=== PATIENT | male | born 1975 | race African-American/Black ===

== ENCOUNTER 2018-11-22 11:27 | Emergency (ER) | payer OTHER ==
[~2018-11-22] VITALS: Ht 188 cm; Wt 87.0 kg
[2018-11-22 11:58] VITALS: BP 112/81
== END 2018-11-22 14:50 | disposition home or self-care (01) ==
LOC: ER 11:27
DX: S60.932A Unspecified superficial injury of left thumb, initial encounter (principal); X58.XXXA Exposure to other specified factors, initial encounter; Y93.9 Activity, unspecified; Y92.9 Unspecified place or not applicable; Z88.0 Allergy status to penicillin; Z98.890 Other specified postprocedural states
CPT/HCPCS: 99281

== ENCOUNTER 2020-03-12 23:38 | Emergency (ER) | payer OTHER ==
[~2020-03-12] VITALS: Ht 182.9 cm; Wt 90.0 kg
[2020-03-13 02:20] LABS: BASOPHILS % 0.9 % (0.0-2.0); EOSINOPHILS % 7.5 % (0.0-5.0); HEMATOCRIT. 43.3 % (42.0-52.0); HEMOGLOBIN. 14.7 g/dL (14.0-18.0); LYMPHOCYTES % 25.1 % (20.0-50.0); MEAN CORPUSCULAR HEMOGLOBIN 33.2 pg (28.0-32.0); MEAN CORPUSCULAR VOLUME 98.2 fL (80.0-94.0); MEAN PLATELET VOLUME 8.9 fl (7.4-10.4); MONOCYTES % 8.8 % (2.0-8.0); NEUTROPHILS % 57.7 % (40.0-76.0); PLATELET 185 x1000/uL (130-400); RED BLOOD CELL COUNT 4.41 mill/uL (4.7-6.1); RED CELL DISTRIBUTION WIDTH 12.6 % (11.6-14.6)
[2020-03-13 02:24] LABS: CHLORIDE 106 mEq/L (98-107)
[2020-03-13 02:28] LABS: ETHANOL BLOOD < 10 mg/dL
[2020-03-13 02:50] LABS: CLARITY URINE CLEAR (CLEAR); COLOR URINE YELLOW (YELLOW); KETONES URINE NEGATIVE (NEGATIVE); LEUKOCYTE ESTERASE URINE NEGATIVE (NEGATIVE); NITRITE URINE NEGATIVE (NEGATIVE); OCCULT BLOOD URINE NEGATIVE (NEGATIVE); PH URINE 6.5 (4.5-8.0); PROTEIN URINE NEGATIVE (NEGATIVE)
[2020-03-13 03:00] LABS: *AMPHETAMINES SCREEN URINE NEGATIVE (NEGATIVE); *BARBITURATES SCREEN URINE NEGATIVE (NEGATIVE); *BENZODIAZEPINES SCREEN URINE NEGATIVE (NEGATIVE); *COCAINE SCREEN URINE NEGATIVE (NEGATIVE); METHADONE URINE SCREEN NEGATIVE (NEGATIVE); OPIATES URINE SCREEN NEGATIVE (NEGATIVE)
[2020-03-13 03:01] LABS: CANNABINOID URINE SCREEN NEGATIVE (NEGATIVE); PHENCYCLIDINE URINE SCREEN NEGATIVE (NEGATIVE)
[2020-03-13 04:00] VITALS: BP 118/76
== END 2020-03-13 04:20 | disposition home or self-care (01) ==
LOC: ER 23:38
DX: F41.9 Anxiety disorder, unspecified (principal); I49.9 Cardiac arrhythmia, unspecified; Z98.890 Other specified postprocedural states; Z88.0 Allergy status to penicillin
CPT/HCPCS: 36415; 80053; 80305; 80320; 81003; 84443; 85025; 93005; 99284; G0480

== ENCOUNTER 2021-09-20 09:04 | Emergency (ER) | payer MEDICAID, OTHER ==
[~2021-09-20] VITALS: Ht 185.4 cm; Wt 99.0 kg
[~2021-09-20 09:04] MED LIST: IBUP-2029 MT
[2021-09-20] MEDS ORDERED: BO1 TP (10:19)
[2021-09-20 10:36] VITALS: BP 118/76
== END 2021-09-20 10:36 | disposition home or self-care (01) ==
LOC: ER 09:35
DX: L98.498 Non-pressure chronic ulcer of skin of other sites with other specified severity (principal); K12.2 Cellulitis and abscess of mouth; Z88.0 Allergy status to penicillin
CPT/HCPCS: 99282

== ENCOUNTER 2021-10-11 08:45 | Emergency (ER) | payer OTHER ==
[~2021-10-11] VITALS: Ht 182.9 cm; Wt 96.0 kg
[~2021-10-11 08:45] MED LIST changes: +BO1 TP
[2021-10-11] MEDS ORDERED: KETOROLAC 30MG/ML VIAL IV STA (10:37)
[2021-10-11] MEDS ORDERED: SODIUM CHLORIDE 0.9% 1,000 ML IV ONE (10:45)
[2021-10-11 10:46] LABS: HEMOGLOBIN. 16.6 g/dL (14.0-18.0); MEAN CORPUSCULAR HEMOGLOBIN 34.1 pg (28.0-32.0); MEAN CORPUSCULAR VOLUME 98.9 fL (80.0-94.0); MEAN PLATELET VOLUME 8.9 fl (7.4-10.4); PLATELET 185 x1000/uL (130-400); RED BLOOD CELL COUNT 4.86 mill/uL (4.7-6.1); RED CELL DISTRIBUTION WIDTH 13.1 % (11.6-14.6)
[2021-10-11 10:49] LABS: CLARITY URINE CLEAR (CLEAR); COLOR URINE YELLOW (YELLOW); KETONES URINE TRACE (NEGATIVE); LEUKOCYTE ESTERASE URINE NEGATIVE (NEGATIVE); NITRITE URINE NEGATIVE (NEGATIVE); OCCULT BLOOD URINE NEGATIVE (NEGATIVE); PH URINE 5.5 (4.5-8.0); PROTEIN URINE NEGATIVE (NEGATIVE); SPECIFIC GRAVITY URINE 1.023 (1.005-1.030); UROBILINOGEN URINE 0.2 E.U./dL (0.2-1.0)
[2021-10-11 10:53] LABS: CHLORIDE 105 mEq/L (98-107)
[2021-10-11 11:07] LABS: PLATELET ESTIMATE NORMAL
[2021-10-11] MEDS ORDERED: METRONIDAZOLE 500 MG PREMIX 100 ML IV ONE (12:00)
[2021-10-11] MEDS ORDERED: LEVOFLOXACIN 500MG PREMIX 100 ML IV ONE (12:00)
[2021-10-11] MEDS ORDERED: SODIUM CHLORIDE 0.9% 1000ML BAG (SEPSIS BOLUS) IV ONE (12:00)
[2021-10-11 15:50] VITALS: BP 116/67
== END 2021-10-11 18:18 | disposition short-term general hospital (02) ==
LOC: ER 09:56
DX: A41.9 Sepsis, unspecified organism (principal); R10.13 Epigastric pain; R19.7 Diarrhea, unspecified; Z20.822 Contact with and (suspected) exposure to COVID-19; Z88.0 Allergy status to penicillin
CPT/HCPCS: 36415; 74176; 80053; 81003; 82962; 83605; 83690; 85025; 87040; 87086; 87426; 93005; 96361; 96365; 96368; 99285; C9803; J1956; J3490; J7030; J1885

== ENCOUNTER 2022-01-17 10:57 | Emergency (ER) | payer OTHER ==
[~2022-01-17] VITALS: Ht 180.3 cm; Wt 94.0 kg
[2022-01-17 11:04] VITALS: BP 123/80
[2022-01-17] MEDS ORDERED: LIDOCAINE HCL/PF 1% 10 MG/ML 5ML VIAL INFIL ONE (12:45)
[2022-01-17] MEDS ORDERED: BACITRACIN ZINC OINT UDPKT TOP ONE (12:45)
[2022-01-17] MEDS ORDERED: ACETAMINOPHEN 325MG TABLET PO ONE (12:45)
[2022-01-17] MEDS ORDERED: CLIN-194 MT (15:15)
== END 2022-01-17 15:37 | disposition home or self-care (01) ==
LOC: ER 10:57
DX: L03.011 Cellulitis of right finger (principal); R55 Syncope and collapse; R94.31 Abnormal electrocardiogram [ECG] [EKG]; R42 Dizziness and giddiness; Z88.0 Allergy status to penicillin; W01.0XXA Fall on same level from slipping, tripping and stumbling without subsequent striking against object, initial encounter; Y93.89 Activity, other specified; Y92.230 Patient room in hospital as the place of occurrence of the external cause
CPT/HCPCS: 70450; 93005; 99284; J3490

== ENCOUNTER 2022-01-19 21:38 | Emergency (ER) | payer OTHER ==
[~2022-01-19] VITALS: Ht 180.3 cm; Wt 96.1 kg
[~2022-01-19 21:38] MED LIST changes: +CLIN-194 MT
[2022-01-19 21:45] VITALS: BP 143/90
[2022-01-20] MEDS ORDERED: ONDANSETRON 4MG ODT PO STA (00:20)
[2022-01-20] MEDS ORDERED: ACETAMINOPHEN 325MG TABLET PO STA (00:20)
[2022-01-20 00:41] LABS: CLARITY URINE CLEAR (CLEAR); COLOR URINE YELLOW (YELLOW); KETONES URINE NEGATIVE (NEGATIVE); LEUKOCYTE ESTERASE URINE NEGATIVE (NEGATIVE); NITRITE URINE NEGATIVE (NEGATIVE); OCCULT BLOOD URINE NEGATIVE (NEGATIVE); PH URINE 5.5 (4.5-8.0); PROTEIN URINE NEGATIVE (NEGATIVE); SPECIFIC GRAVITY URINE 1.006 (1.005-1.030); UROBILINOGEN URINE 0.2 E.U./dL (0.2-1.0)
[2022-01-20 00:55] LABS: *AMPHETAMINES SCREEN URINE NEGATIVE (NEGATIVE); *BARBITURATES SCREEN URINE NEGATIVE (NEGATIVE); *BENZODIAZEPINES SCREEN URINE NEGATIVE (NEGATIVE); *COCAINE SCREEN URINE NEGATIVE (NEGATIVE); CANNABINOID URINE SCREEN NEGATIVE (NEGATIVE); METHADONE URINE SCREEN NEGATIVE (NEGATIVE); OPIATES URINE SCREEN NEGATIVE (NEGATIVE); PHENCYCLIDINE URINE SCREEN NEGATIVE (NEGATIVE)
[2022-01-20 02:24] LABS: BASOPHILS % 1.2 % (0.0-2.0); EOSINOPHILS % 6.9 % (0.0-5.0); HEMATOCRIT. 44.9 % (42.0-52.0); LYMPHOCYTES % 31.9 % (20.0-50.0); MEAN CORPUSCULAR HEMOGLOBIN 33.2 pg (28.0-32.0); MEAN CORPUSCULAR VOLUME 99.1 fL (80.0-94.0); MEAN PLATELET VOLUME 9.6 fl (7.4-10.4); MONOCYTES % 9.3 % (2.0-8.0); NEUTROPHILS % 50.7 % (40.0-76.0); PLATELET 186 x1000/uL (130-400); RED BLOOD CELL COUNT 4.53 mill/uL (4.7-6.1); RED CELL DISTRIBUTION WIDTH 13.1 % (11.6-14.6)
[2022-01-20 02:32] LABS: CHLORIDE 104 mEq/L (98-107)
[2022-01-20 02:41] LABS: ETHANOL BLOOD < 10 mg/dL
[2022-01-20] MEDS ORDERED: MECL-159 PO (03:31)
== END 2022-01-20 03:52 | disposition home or self-care (01) ==
LOC: ER 21:38
DX: R42 Dizziness and giddiness (principal); R07.9 Chest pain, unspecified; Z88.0 Allergy status to penicillin; Z87.820 Personal history of traumatic brain injury
CPT/HCPCS: 36415; 80053; 80305; 80320; 81003; 85025; 93005; 99284; Q0162; G0480

== ENCOUNTER 2022-01-22 12:51 | Emergency (ER) | payer OTHER ==
[~2022-01-22] VITALS: Ht 180.3 cm; Wt 100.0 kg
[~2022-01-22 12:51] MED LIST changes: +MECL-159 PO
[2022-01-22] MEDS ORDERED: ASPIRIN 325MG EC TABLET PO ONE (13:15)
[2022-01-22 14:09] LABS: BASOPHILS % 1.2 % (0.0-2.0); EOSINOPHILS % 4.6 % (0.0-5.0); HEMATOCRIT. 44.7 % (42.0-52.0); LYMPHOCYTES % 38.4 % (20.0-50.0); MEAN CORPUSCULAR HEMOGLOBIN 32.9 pg (28.0-32.0); MEAN CORPUSCULAR VOLUME 98.2 fL (80.0-94.0); MEAN PLATELET VOLUME 9.4 fl (7.4-10.4); MONOCYTES % 10.4 % (2.0-8.0); NEUTROPHILS % 45.4 % (40.0-76.0); PLATELET 191 x1000/uL (130-400); RED BLOOD CELL COUNT 4.55 mill/uL (4.7-6.1); RED CELL DISTRIBUTION WIDTH 13.1 % (11.6-14.6)
[2022-01-22 14:15] LABS: INR 1.1; PROTHROMBIN TIME 11.4 sec (9.6-11.0)
[2022-01-22 14:19] LABS: CHLORIDE 104 mEq/L (98-107)
[2022-01-22 17:40] VITALS: BP 115/75
== END 2022-01-22 17:55 | disposition home or self-care (01) ==
LOC: ER 12:57
DX: R07.9 Chest pain, unspecified (principal); Z88.0 Allergy status to penicillin
CPT/HCPCS: 36415; 71045; 80053; 84484; 85025; 93005; 99285